=== PATIENT | male | born 1990 | race African-American/Black ===

== ENCOUNTER 2016-08-03 21:21 | Emergency (ER) | payer MEDICAID ==
[~2016-08-03] VITALS: Ht 193 cm; Wt 90.7 kg
[2016-08-03 21:31] VITALS: BP 138/80
--- NOTE | 2016-08-03 22:52 | NUR ---
Patient ambulated to bed 05.
--- NOTE | 2016-08-03 22:54 | NUR ---
Dr. Levi evaluating patient at bedside.
--- NOTE | 2016-08-03 22:55 | NUR ---
PT C/O TOOTH ACHE RADIATING TO HIS LEFT EAR STARTED YESTERDAY
--- NOTE | 2016-08-03 22:56 | NUR ---
Patient being evaluated by DR. MARIE at bedside.
[2016-08-03] MEDS ORDERED: IBUPROFEN 800 MG TAB PO ONE (23:00)
--- NOTE | 2016-08-03 23:30 | NUR ---
Patient discharged with v/s stable BY DR. MARIE. Written and verbal after care instructions given and explained. Patient alert, oriented and verbalized understanding of instructions. Ambulatory with steady gait. All questions addressed prior to discharge. ID band removed. Patient advised to follow up with PMD. Rx of NAPROSYN 500MG PO, PENICILLIN VK 500MG PO given. Patient educated on indication of medication including possible reaction and side effects. Opportunity to ask questions provided and answered.
[2016-08-03 23:31] VITALS: BP 132/74
== END 2016-08-03 23:30 | disposition home or self-care (01) ==
LOC: MED 21:21
DX: K04.7 Periapical abscess without sinus (principal)
CPT/HCPCS: 99283